=== PATIENT | female | born 1975 | race Caucasian/White ===

== ENCOUNTER → 2019-01-31 | Outpatient (CLI) | payer BC, SELFPAY ==
[2019-01-31 17:28] LABS: Hemoglobin 12.7 g/dl (12.0-15.0); Mean Corp Hgb Conc 32.6 g/gl (32-36); Mean Corpuscular Hgb 29.5 pg (27.0-32.0); Mean Corpuscular Volume 90.5 fL (81-99); Mean Platelet Vol. 10.3 fl (6.2-12.0); Platelet Count 287 K/mm3 (150-450); RBC Distribution Width CV 13.5 % (11.6-14.6); RBC Distribution Width SD 44.9 fl (35.1-43.9); Red Blood Count 4.31 M/mm3 (4.2-5.4); White Blood Count 6.8 K/mm3 (4.4-11.0)
[2019-01-31 17:31] LABS: Scan Indicated on CBC? Y/N NO
[2019-01-31 17:54] LABS: AST(SGOT) 29 U/L (15-37); Alanine Aminotransfer ALT/SGPT 53 U/L (13-56)
== END | disposition home or self-care (01) ==
LOC: LAB.FUTURE 16:06
PROVIDERS: Family Provider Internal Medicine; PCP Internal Medicine; Referring Provider Podiatrist; Visit Provider Podiatrist
DX: B35.1 Tinea unguium (principal)
CPT/HCPCS: 36415; 84450; 84460; 85027

== ENCOUNTER 2019-02-09 06:59 | Emergency (ER) | payer BC, SELFPAY ==
[2019-02-09 06:30] VITALS: BMI 40.8
[2019-02-09 07:01] VITALS: BP 147/101; PULSE 90; RESP 16; TEMP 36.9; O2SAT 98; BMI 41.5
--- NOTE | 2019-02-09 07:32 | VDLE_ITS ---
Reason For Study: Swelling Procedure LEFT Exam performed portable in ED. GSV is normal. A preliminary report was called and/or faxed CFV is compressible, spontaneous, phasic, to R[place]. competent, and demonstrates normal augmentation. FV is compressible, spontaneous, phasic, competent and demonstrates normal augmentation. POP V is compressible, spontaneous, phasic, competent and demonstrates normal augmentation. T/P Trunk is compressible. PTV is compressible. LT PerV is compressible. Interpretation Summary Deep veins of the left lower extremity are patent and compressible segmentally. There is no evidence of left lower extremity deep vein thrombosis. Valvular competence appears intact within the proximal deep venous system on the left . The left greater saphenous vein appears patent and compressible segmentally. Ordering Physician: Alexis Ni Referring Physician: Souleymane Rodríguez Performed By: Latisha Tan RVT
--- NOTE | 2019-02-09 07:36 | ED.DCSUM_ITS ---
- ER Visit Summary Date of Service: 02/09/19 Chief Complaint: Left leg swelling History of Present Illness: The patient is a 43 F who presents with swelling of her left leg for the past 4 days. Patient states the swelling is localized to the ankle area. Patient states she did have some pain when she tried to ice her ankle yesterday. Patient denies any new paresthesias or weakness. Patient states she does have a history of neuropathy in her left foot. Patient denies any chest pain or shortness of breath. Patient states [facility] and was referred here for ultrasound. Physical Examination: Vital signs are stable. Patient is afebrile. Patient is in no acute distress. Musculoskeletal exam reveals some tenderness over the left calf. There is trace edema of the left foot and ankle. Pedal pulses are equal bilaterally. Sensation was intact to light touch in all digits. Capillary refill was less than 2 seconds in all digits. There is minimal pain with dorsiflexion of the left ankle. Test Results: Venous duplex of the left leg was obtained. There is no evidence of DVT. Emergency Department Course and Treatment: Patient was advised of the ultrasound results. Patient was instructed to ice and elevate her left leg. Patient was instructed to follow-up with her primary care physician in 5 to 7 days. Patient understood and was agreeable with the plan. All questions were answered. Disposition: Discharge home Impression: Left leg edema This note was generated with [employer] dictation software. It may contain incorrect words, spelling, and punctuation that were not noted in review of the chart prior to signing ED Disposition - Plan for ED Patient: Disposition: Home or Assisted Living Diagnosis: Leg edema, left Instructions: ED Leg Swelling Unilateral Referrals: Corina Henry MD [STAFF PHYSICIAN] - 5-7 Days
[2019-02-09 08:34] VITALS: RESP 17
--- NOTE | 2019-02-09 08:35 | ED.RN ---
DISCHARGE INSTRUCTIONS GIVEN TO AND REVIEWED WITH PATIENT, PATIENT DENIES QUESTIONS OR CONCERNS AND VOICES UNDERSTANDING OF DISCHARGE INSTRUCTIONS. PT AMBULATES OUT OF ROOM WITHOUT DIFFICULTY.
== END 2019-02-09 08:35 | disposition home or self-care (01) ==
PROVIDERS: Emergency Provider Emergency Medicine; Family Provider Nurse Practitioner Family; PCP Nurse Practitioner Family
DX: R60.0 Localized edema (principal); J45.909 Unspecified asthma, uncomplicated; K21.9 Gastro-esophageal reflux disease without esophagitis; R56.9 Unspecified convulsions; Z79.51 Long term (current) use of inhaled steroids
CPT/HCPCS: 93971; 99282

== ENCOUNTER → 2019-11-28 17:39 | Outpatient (CLI) | payer OTHER, SELFPAY ==
[2019-11-28 17:55] LABS: Absolute Lymphocyte Count 2.57 X10^3/uL (0.83-4.51); Absolute Neutrophil Count 6.1 X10^3/uL (2.0-7.7); Basophil# 0.05 X10^3/uL; Basophil% 0.5 % (0-1); Eosinophil# 0.44 X10^3/uL; Eosinophils% 4.5 % (0-5); Hematocrit 42.1 % (37-47); Hemoglobin 13.4 g/dL (12.0-15.0); Lymphocyte # 2.57 X10^3/ul (4.0); Lymphocyte % 26.1 % (19-41); Mean Corp Hgb Conc 31.8 g/dL (32-36); Mean Corpuscular Hgb 29.3 pg (27.0-32.0); Mean Corpuscular Volume 92.1 fL (81-99); Mean Platelet Vol. 10.4 fl (6.2-12.0); Monocyte# 0.64 X10^3/uL; Monocyte% 6.5 % (0-10); NRBC Flagged by Analyzer 0 % (0-5); Neutrophil # 6.12 X10^3/uL (2.7-7.7); Platelet Count 298 K/mm3 (150-450); RBC Distribution Width CV 13.5 % (11.6-14.6); RBC Distribution Width SD 46.3 fl (35.1-43.9); Red Blood Count 4.57 M/mm3 (4.2-5.4); White Blood Count 9.9 K/mm3 (4.4-11.0)
[2019-11-28 19:35] LABS: Vitamin B12 399 pg/mL (211-911); Vitamin D,25 Hydroxy 34.6 ng/mL
[2019-11-28 19:42] LABS: AST(SGOT) 29 U/L (15-37); Alanine Aminotransfer ALT/SGPT 47 U/L (13-56); Albumin, Serum 3.7 g/dL (3.2-5.0); Alkaline Phosphatase 79 U/L (45-117); Anion Gap 8 (5-15); BUN 14 mg/dL (7-18); BUN/Creat Ratio 14.3 RATIO (10-20); Calcium,Total 8.9 mg/dL (8.5-10.1); Chloride 103 mmol/L (98-107); Creatinine, Serum 0.98 mg/dL (0.55-1.02); EST Glomerular Filtration Rate 66 mL/min (>60); Est Glom Filt Rate - Afr Amer 80 mL/min (>60); Globulin 3.7 g/dL (2.2-4.2); Glucose 84 mg/dL (74-106); Magnesium 2.1 mg/dL (1.6-2.6); Potassium 3.7 mmol/L (3.5-5.1); Protein, Total 7.4 g/dL (6.4-8.2); Sodium Level 137 mmol/L (136-145); Thyroid Stim Hormone (TSH) 2.68 uIU/mL (0.358-3.74)
== END ==
PROVIDERS: PCP Nurse Practitioner Family; Referring Provider Family Medicine; Visit Provider Family Medicine
DX: G62.9 Polyneuropathy, unspecified (principal); R25.2 Cramp and spasm
CPT/HCPCS: 36415; 80053; 82306; 82607; 82746; 83735; 84443; 85025

== ENCOUNTER → 2020-03-20 16:03 | Outpatient (CLI) | payer OTHER, SELFPAY ==
--- NOTE | 2020-03-20 16:17 | RAD_ITS ---
STUDY: X-RAY - LUMBAR SPINE REASON FOR EXAM: Female, 44 years old. Low back pain since the beginning of November TECHNIQUE: 5 view(s) of the lumbar spine were obtained. COMPARISON: None FINDINGS: Normal lumbar lordosis. There is no substantial scoliosis. There is a normal alignment of the vertebrae. Normal vertebral bodies and endplates. Normal disc space heights except for narrowing at L5/S1. There is no demonstrated fracture. The soft tissue structures are unremarkable. RAD/L/S Spine Min 4 Views IMPRESSION: Degenerative changes at L5/S1, otherwise unremarkable lumbar spine Electronically Signed: Timmy Guy MD at 16:48 EDT , Service support ,
--- NOTE | 2020-03-20 16:18 | RAD_ITS ---
STUDY: X-RAY - SACROILIAC JOINTS REASON FOR EXAM: Female, 44 years old. Low back pain since the beginning of November TECHNIQUE: 3 view(s) of the sacroiliac joints were obtained. COMPARISON: None. FINDINGS: Normal bilateral sacroiliac joints. Normal visualized sacral ala and sacrum. Normal visualized iliac bones. Normal visualized soft tissue structures. RAD/S-I Jts 3 or More Views IMPRESSION: Normal x-ray examination of the bilateral sacroiliac joints. Electronically Signed: Timmy Guy MD at 16:48 EDT , Service support ,
[2020-03-20 17:58] LABS: AST(SGOT) 31 U/L (15-37); Alanine Aminotransfer ALT/SGPT 57 U/L (13-56); Albumin, Serum 3.7 g/dL (3.2-5.0); Alkaline Phosphatase 73 U/L (45-117); Anion Gap 9 (5-15); BUN 10 mg/dL (7-18); BUN/Creat Ratio 10.2 RATIO (10-20); Chloride 107 mmol/L (98-107); Creatinine, Serum 0.98 mg/dL (0.55-1.02); EST Glomerular Filtration Rate 66 mL/min (>60); Est Glom Filt Rate - Afr Amer 79 mL/min (>60); Globulin 3.8 g/dL (2.2-4.2); Glucose 98 mg/dL (74-106); Potassium 3.5 mmol/L (3.5-5.1); Protein, Total 7.5 g/dL (6.4-8.2); Sodium Level 140 mmol/L (136-145)
== END ==
PROVIDERS: PCP Nurse Practitioner Family; Referring Provider Family Medicine; Visit Provider Family Medicine
DX: B35.1 Tinea unguium (principal); M54.5 Low back pain
CPT/HCPCS: 36415; 72110; 72202; 80053

== ENCOUNTER 2020-05-04 15:00 | Outpatient (RCR) | payer OTHER, SELFPAY ==
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
--- NOTE | 2020-05-04 15:56 | HP.PTDCSUM_ITS ---
It has been my pleasure to treat FRANSICO HOWELL referred by Dr. Guzman Polanco MD, with the diagnosis of LOWER BACK PAIN for a total of 7 visit(s). Discharge Date: 05/04/20 Please see the following information for a summary of their discharge status. Subjective: THE CONSTANT ACHING PAIN IS ALMOST GONE BUT INTERMITTENT SHARP SHOOTING PAINS ARE ABOUT THE SAME. PATIENT REPORTS MISSING SEVERAL AMELIA'TS DUE TO ILLNESS. LEFT LOW BACK Pain Intensity (Out of 10): 0 % Improvement: 60 Objective/Function: PATIENT WAS SEEN TODAY FOR RE-ASSESSMENT OF PROGRESS TOWARD THE SET PT GOALS AND THE NEED FOR FURTHER PHYSICAL THERAPY VS READINESS FOR DISCHARGE. PATIENT IS A GOOD CANDIDATE TO CONTINUE PT BASED ON PROGRESS MADE AND ROOM FOR FUTHER IMPROVEMENT BUT SHE IS REQUESTING TO STOP PT AND TRY HEP AT THIS POINT. WILL FOLLOW UP WITH DR. DALE NEEDED. THIS PT ENCOURAGED PATIENT TO SCHEDULE FOLLOW UP WITH DR. DALE IF UNABLE TO RETURN TO PRIOR LEVEL OF FUNCTION AND PAIN. PATIENT IS AGREEABLE. UPON EXAM TODAY: THIS PATIENT AMBULATES INDEP'LY INTO PT WITH INCREASED CADANCE AND DECREASED GUARDING WITH TRANSFERS COMPARED TO INTIAL EVAL. Motor deficit: SANDOVAL LE'S 5/5 WITH MMT'ING. Sensory deficit: DECREASED LEFT ANKLE AND FOOT LIGHT TOUCH COMPARED TO RIGHT. ROM deficit: WFL AND SYMMETRICAL. Reflexes: NT. Dural Signs: NEGATIVE SANDOVAL LE'S. Lumbar mvmt loss: flex - NIL. ext - MIN. R SG - MIN. L SG - MOD. INCREASED LEFT LBP WITH LEFT SG TESTING. Core strength: POOR. OTHER: INDEP HEP Goal 1:: DECREASE C/O LOW BACK AND LLE SX'S. Goal 2:: IMPROVE PERSONAL CARE, LIFTING, WALKING, SITTING, STANDING, SLEEP, SO CIAL LIFE, TRAVEL AND WORK/HOMEMAKING FUNCTION Goal 3:: INSTRUCT IN PROPHYLAXIS Plan: D/C AT PATIENTS REQUEST If there are questions or concerns regarding this patient's physical therapy, please feel free to call me at [phone]. Thank you for the referral of this patient. Sincerely, Corina Finnegan, PT, Cert MDT
== END 2020-05-04 19:00 | disposition home or self-care (01) ==
LOC: PT 15:00
PROVIDERS: PCP Family Medicine; Referring Provider Family Medicine; Visit Provider Family Medicine
DX: M54.5 Low back pain (principal)
CPT/HCPCS: 97014; 97110; 97112; 97162; 97164; 97530; G0283

== ENCOUNTER → 2020-08-07 08:24 | Outpatient (CLI) | payer OTHER, SELFPAY ==
--- NOTE | 2020-08-07 15:06 | PFTCOMP ---
COMPLETE PULMONARY FUNCTION TEST INTERPRETATION Brief HPI: Patient is a 45 year old female, currently under the care of Dr. Polanco, who presents to [facility] for complete pulmonary function tests secondary to diagnosis of asthma. Respiratory therapist reports good effort and reproducible results. Interpretation: Forced expiration spirometry shows no large airways obstructive ventilatory defect with an FEV1 of 91% predicted. There is no significant bronchodilator response by strict ATS criteria. Spirograms are of good quality and plateau slowly, indicating slowly emptying areas of the lungs. The respiratory flow volume loop shows decreased expiratory flow rates at high lung volumes consistent with small airways obstruction. Lung volumes by body plethysmography show a normal total lung capacity at 6.44 L, 97% predicted. All other lung volumes are within normal limits. Diffusion capacity by carbon monoxide is slightly decreased at 72% predicted. The airway resistance is elevated. No previous pulmonary function tests were available for review. Impression: Normal lung volumes and spirometry, but slightly reduced diffusing capacity.
== END ==
PROVIDERS: PCP Family Medicine; Referring Provider Family Medicine; Visit Provider Family Medicine
DX: J45.40 Moderate persistent asthma, uncomplicated (principal)
CPT/HCPCS: 94060; 94726; 94729

== ENCOUNTER 2020-11-30 16:39 | Outpatient (RCR) | payer OTHER, SELFPAY ==
[2020-11-30] MEDS: COVID-19 VACC, MRNA(PFIZER)/PF 30 MCG/0.3 ML SYRINGE IM (17:18)
[2020-12-21] MEDS: COVID-19 VACC, MRNA(PFIZER)/PF 30 MCG/0.3 ML SYRINGE IM (13:29)
== END 2020-11-30 23:59 ==
LOC: IMMUN 16:39
PROVIDERS: PCP Family Medicine; Referring Provider Family Medicine; Visit Provider Family Medicine
DX: Z23 Encounter for immunization (principal)
CPT/HCPCS: 0001A; 0002A; 91300

== ENCOUNTER 2023-03-25 13:45 | Emergency (ER) | payer OTHER, SELFPAY ==
[2023-03-25 13:45] VITALS: BP 158/97; PULSE 110; RESP 18; TEMP 36.6; O2SAT 99; BMI 42.7
[2023-03-25 14:17] LABS: Mucous, Urine 0 SEEN /hpf (<or=2+)
[2023-03-25 14:20] LABS: Absolute Lymphocyte Count 1.57 X10^3/uL (0.83-4.51); Absolute Neutrophil Count 9.6 X10^3/uL (2.0-7.7); Basophil# 0.05 X10^3/uL; Basophil% 0.4 % (0-1); Color, Urine Yellow (Yellow); Eosinophil# 0.18 X10^3/uL; Eosinophils% 1.5 % (0-5); Glucose, Dipstick Normal (Normal); Hematocrit 43.3 % (37-47); Hemoglobin 13.9 g/dL (12.0-15.0); Ketone-Dipstick Negative (Negative); Leukocyte Esterase-Dipstick 500 /ul (Negative); Lymphocyte # 1.57 X10^3/ul (0.83-4.51); Mean Corp Hgb Conc 32.1 g/dL (32-36); Mean Corpuscular Hgb 28.9 pg (27.0-32.0); Mean Platelet Vol. 10.4 fl (6.2-12.0); Monocyte# 0.61 X10^3/uL; NRBC Flagged by Analyzer 0 % (0-5); Neutrophil # 9.62 X10^3/uL (2.7-7.7); Neutrophil % 79.6 % (47-70); Nitrite-Dipstick Negative (Negative); Occult Blood-Urine 50 /ul (Negative); Platelet Count 300 K/mm3 (150-450); Protein-Dipstick 30 mg/dl (Negative); RBC Distribution Width CV 13.6 % (11.6-14.6); RBC Distribution Width SD 44.9 fl (35.1-43.9); Red Blood Count 4.81 M/mm3 (4.2-5.4); Urine Bilirubin Dipstick Negative (Negative); Urine Clarity Sl. Cloudy (Clear); Urine Urobilinogen Normal (Normal); White Blood Count 12.1 K/mm3 (4.4-11.0)
[2023-03-25 14:33] LABS: Anion Gap 3 (5-15); BUN 19 mg/dL (7-18); Calcium,Total 9.8 mg/dL (8.5-10.1); Chloride 107 mmol/L (98-107); Creatinine, Serum 1.19 mg/dL (0.55-1.02); EST Glomerular Filtration Rate 52 mL/min (>60); Est Glom Filt Rate - Afr Amer 63 mL/min (>60); Estimated Creatinine Clearance 66.73 ml/min; Glucose 106 mg/dL (74-106); Sodium Level 137 mmol/L (136-145)
[2023-03-25 14:35] LABS: Bacteria 1+ /hpf (None Seen); Red Blood Cells-Urine 0-5 SEEN /hpf (0-5); Squamous Epithelial Cells - UA 0-5 SEEN /hpf (5-10); White Blood Cells 25-50 SEEN /hpf (0-5)
--- NOTE | 2023-03-25 15:38 | EDS_ITS ---
HPI History of Present Illness Chief Complaint: Flank Pain Informant: patient Onset/Context/Timing Onset: Days Context: Gradual Onset Narrative Narrative: Patient presents with left flank pain for the past couple days and concern for possible UTI for the past week. She states she has noted cloudy urine and slight increased urinary frequency over the past week. She has had chills. Over the past 2 days she now has pain when she urinates and left flank pain. She does report that she gets frequent urinary symptoms but usually will drink a lot of water to help flush her kidney. She does report having a kidney stone about 19 years ago. [facility] Medical History Asthma Diarrhea Fatigue Hemorrhoids Incontinence Seizures Shortness of breath Shoulder pain Stomach ulcer Home Medications albuterol sulfate 90 mcg/actuation aerosol inhaler (Ventolin HFA) 1 - 2 puff inhalation Q4H PRN PRN Wheezing 07/29/13 [History Last Taken 08/03/13 14:00] loratadine 10 mg tablet (Allergy Relief (loratadine)) 10 mg PO DAILY 08/26/13 [History Last Taken Unknown] cholecalciferol (vitamin D3) 250 mcg (10,000 unit) tablet 12,000 unit PO QWEEK 02/09/19 [History Last Taken Unknown] azithromycin 250 mg tablet See Rx Instructions PO .COMPLEX #6 tabs 03/03/22 [Rx Last Taken Unknown] hydrocodone-acetaminophen 5-325mg 5mg-325mg 1 tab PO Q6H PRN PRN Pain 3 days #10 TABLETS 03/25/23 [Rx Last Taken Unknown] ondansetron 4 mg disintegrating tablet 4 mg PO Q8H PRN PRN Nausea #10 tabs 03/25/23 [Rx Last Taken Unknown] sulfamethoxazole 800 mg-trimethoprim 160 mg tablet (Bactrim DS) 1 tab PO BID #20 tabs 03/25/23 [Rx Last Taken Unknown] Allergy/AdvReac Type Severity Reaction Status Date / Time aspirin Allergy Severe Anaphylaxis Verified 03/25/23 13:47 ibuprofen Allergy Severe Anaphylaxis Verified 03/25/23 13:47 naproxen [From Naprosyn] Allergy Severe Anaphylaxis Verified 03/25/23 13:47 Family History Other Breast cancer Colon cancer Diabetes Heart disease Myocardial infarction Thyroid disorder Surgical History History of bunionectomy of both great toes History of hysterectomy History of lateral meniscus repair of left knee Social History Smoking Status: Never smoker alcohol intake: current alcohol intake frequency: holidays/special occasions only ROS ROS ED Constitutional Constitutional ED: Reports chills; Denies fever(s) Eyes Eyes: Denies change in vision or discharge from eye(s) ENT ENT ED: Denies discharge from eye(s), rhinorrhea or sore throat Cardiovascular Cardiovascular: Denies chest pain or palpitations Respiratory/Chest Respiratory/Chest: Denies cough or dyspnea Gastrointestinal Gastrointestinal: Reports abdominal pain and nausea; Denies diarrhea or vomiting Genitourinary Genitourinary ED: Reports dysuria Musculoskeletal Musculoskeletal: Reports back pain; Denies extremity pain Integumentary Denies Abrasions or rash Neurologic Neurologic: Denies headache(s) or weakness Allergic/Immunologic Allergic/Immunologic ED: Denies lip swelling or urticaria EXAM Physical Exam Const Vital Signs: 03/25/23 13:45 Temperature 98 F Temperature Source Temporal Pulse Rate 110 H Respiratory Rate 18 Blood Pressure 158/97 H Blood Pressure Mean 117 Pulse Ox 99 Oxygen Delivery Method Room Air Positive well nourished and well developed General Appearance ED: well developed HEENT Reports moist mucous membranes Eyes PERRL and EOMs intact bilaterally Neck no lymphadenopathy Chest Wall inspection of chest normal and palpation of chest normal Resp normal respiratory effort and clear to auscultation bilaterally Cardio regular rate and regular rhythm GI GI Narrative: Abdomen soft with no focal tenderness. Back/Spine General Back: CVA tenderness left Extremity normal to inspection Neuro oriented x3 Psych mental status grossly normal Skin no rashes or lesions noted MDM MDM MDM Narrative Medical decision making narrative: Due to long wait time patient had work-up initiated through nursing protocol. Labwork obtained to evaluate for leukocytosis, anemia, and electrolyte derangement. Urinalysis obtained to evaluate for infection/hematuria. Lab Data Labs: Laboratory Results - last 24 hr 03/25/23 14:08 WBC 12.1 H RBC 4.81 Hgb 13.9 Hct 43.3 MCV 90.0 MCH 28.9 MCHC 32.1 RDW Std Deviation 44.9 H RDW Coeff of Cathie 13.6 Plt Count 300 MPV 10.4 Immature Gran % (Auto) 0.500 Neut % (Auto) 79.6 H Lymph % (Auto) 13.0 L Green % (Auto) 5.0 Eos % (Auto) 1.5 Baso % (Auto) 0.4 Absolute Neuts (auto) 9.6 H Absolute Lymphs (auto) 1.57 Nucleated RBC % 0 Sodium 137 Potassium 4.0 Chloride 107 Carbon Dioxide 27.0 Anion Gap 3 L BUN 19 H Creatinine 1.19 H Estim Creat Clear Calc 66.73 Est GFR (MDRD) Af Amer 63 Est GFR (MDRD) Non-Af 52 L BUN/Creatinine Ratio 16.0 Glucose 106 Calcium 9.8 Urine Color Yellow Urine Clarity Sl. Cloudy Urine pH 6.0 Ur Specific [place] 1.010 Urine Protein 30 H Urine Glucose (UA) Normal Urine Ketones Negative Urine Occult Blood 50 H Urine Nitrite Negative Urine Bilirubin Negative Urine Urobilinogen Normal Ur Leukocyte Esterase 500 H Urine RBC 0-5 SEEN Urine WBC 25-50 SEEN Ur Squamous Epith Cells 0-5 SEEN Urine Bacteria 1+ Urine Mucus 0 SEEN Treatment and Re-Evaluation :: CBC was a white count of 12.1 with 79% neutrophils. Hemoglobin normal at 13.9. Chemistry studies reveal a BUN of 19 and a creatinine of 1.19. Urinalysis does reveal signs of infection with 500 leukocyte esterase, 25-50 white cells, 1+ bacteria. At the time of my evaluation patient is ordered a liter IV fluids along with a dose of morphine and Zofran for pain and nausea control. A dose of IV Rocephin will be given and urine culture will be sent. She will be discharged with a prescription for Bactrim. I will also write her a few [place] for breakthrough pain and Zofran for nausea. Return instructions are provided. Discharge Plan Triage Chief Complaint: Flank Pain ED Provider: Shama Aguilar Dx/Rx/DC Orders Clinical Impression: Pyelonephritis Instructions: ED Pyelonephritis, Female (Adult) Prescriptions: New sulfamethoxazole-trimethoprim [Bactrim DS] 800-160 mg tablet 1 tab PO BID Qty: 20 0RF hydrocodone-acetaminophen 5-325 mg tablet 1 tab PO Q6H PRN PRN (Reason: Pain) 3 Days Qty: 10 0RF ondansetron 4 mg tablet,disintegrating 4 mg PO Q8H PRN PRN (Reason: Nausea) Qty: 10 0RF No Action azithromycin 250 mg tablet See Rx Instructions PO .COMPLEX Qty: 6 0RF Rx Instructions: take 500 mg today (day 1), then 250 mg for 4 days (days 2-5) PO albuterol sulfate [Ventolin HFA] 1 INHALER inhaler 1 - 2 puff inhalation Q4H PRN PRN (Reason: Wheezing) loratadine [Allergy Relief (loratadine)] 10 MG tablet 10 mg PO DAILY cholecalciferol (vitamin D3) 10,000 UNIT tablet 12,000 unit PO QWEEK Primary Care Provider: Guzman Polanco Referrals: Guzman Polanco MD [Primary Care Provider] - 1-2 Weeks Disposition Disposition: Home, Self Care
[2023-03-25] MEDS: Morphine 4 MG/ML Syringe IV (15:59)
[2023-03-25] MEDS: Ondansetron 4 MG/2 ML Vial IV (15:59)
[2023-03-25] MEDS: 0.9% Normal Saline 1,000 ML 999 ML IV (15:59)
[2023-03-25] MEDS: Ceftriaxone 1 GM/50 ML BAG IV (16:04)
[2023-03-25 16:46] VITALS: BP 135/72; PULSE 88; RESP 16; O2SAT 97
== END 2023-03-25 16:48 | disposition home or self-care (01) ==
PROVIDERS: Emergency Provider Emergency Medicine; PCP Family Medicine; Visit Provider Emergency Medicine
DX: N12 Tubulo-interstitial nephritis, not specified as acute or chronic (principal)
CPT/HCPCS: 80048; 81001; 85025; 87086; 87088; 87186; 96365; 96375; 99283; J7030; A4216; J2405

== ENCOUNTER → 2023-04-22 | Outpatient (CLI) | payer OTHER, SELFPAY ==
[2023-04-22 18:03] LABS: Absolute Lymphocyte Count 2.01 X10^3/uL (0.83-4.51); Absolute Neutrophil Count 5.9 X10^3/uL (2.0-7.7); Basophil# 0.04 X10^3/uL; Basophil% 0.4 % (0-1); Eosinophil# 0.48 X10^3/uL; Eosinophils% 5.4 % (0-5); Lymphocyte # 2.01 X10^3/ul (0.83-4.51); Lymphocyte % 22.6 % (19-41); Mean Corp Hgb Conc 31.7 g/dL (32-36); Mean Corpuscular Volume 91.3 fL (81-99); Mean Platelet Vol. 10.9 fl (6.2-12.0); Monocyte# 0.46 X10^3/uL; Monocyte% 5.2 % (0-10); NRBC Flagged by Analyzer 0 % (0-5); Neutrophil # 5.88 X10^3/uL (2.7-7.7); Neutrophil % 66.2 % (47-70); Platelet Count 284 K/mm3 (150-450); RBC Distribution Width CV 14.5 % (11.6-14.6); RBC Distribution Width SD 48.7 fl (35.1-43.9); Red Blood Count 4.49 M/mm3 (4.2-5.4); White Blood Count 8.9 K/mm3 (4.4-11.0)
[2023-04-22 18:23] LABS: Vitamin B12 309 pg/mL (211-911); Vitamin D,25 Hydroxy 40.6 ng/mL
[2023-04-22 18:32] LABS: ALB/GLOB Ratio 0.8 RATIO (0.9-2.4); AST(SGOT) 24 U/L (15-37); Alanine Aminotransfer ALT/SGPT 41 U/L (13-56); Albumin, Serum 3.3 g/dL (3.2-5.0); Alkaline Phosphatase 78 U/L (45-117); Anion Gap 5 (5-15); BUN 13 mg/dL (7-18); BUN/Creat Ratio 13.1 RATIO (10-20); Calcium,Total 9.4 mg/dL (8.5-10.1); Chloride 109 mmol/L (98-107); Cholesterol 122 mg/dL (200); Creatinine, Serum 0.99 mg/dL (0.55-1.02); EST Glomerular Filtration Rate 64 mL/min (>60); Est Glom Filt Rate - Afr Amer 78 mL/min (>60); Globulin 3.9 g/dL (2.2-4.2); Glucose 110 mg/dL (74-106); High Density Lipoprotein 50 mg/dL; Magnesium 2.1 mg/dL (1.6-2.6); Potassium 3.9 mmol/L (3.5-5.1); Protein, Total 7.2 g/dL (6.4-8.2); Rheumatoid Factor < 10.0 IU/mL (<15); Sodium Level 141 mmol/L (136-145); Thyroid Stim Hormone (TSH) 2.69 uIU/mL (0.358-3.74); Triglycerides 187 mg/dL; Very Low Density Lipoprotein 37 mg/dL (5-40)
[2023-04-22 18:38] LABS: Erythrocyte Sedimentation Rate 21 mm/hr (0-30)
[2023-04-24 11:09] LABS: ANTINUCLEAR ANTIBODIES DIRECT Negative (Negative)
== END | disposition home or self-care (01) ==
LOC: MFPLAB 15:49
PROVIDERS: PCP Family Medicine; Visit Provider Family Medicine
DX: M25.50 Pain in unspecified joint (principal); E11.9 Type 2 diabetes mellitus without complications; R20.2 Paresthesia of skin
CPT/HCPCS: 36415; 80053; 80061; 82306; 82607; 83735; 84443; 85025; 85652; 86038; 86140; 86431

== ENCOUNTER → 2023-05-12 | Outpatient (CLI) | payer OTHER, SELFPAY ==
--- NOTE | 2023-05-12 10:15 | RAD_ITS ---
INDICATION: PAIN EXAMINATION/TECHNIQUE: X-RAY - XR Pelvis 1 or 2 Views COMPARISON: No prior examinations are available for comparison. FINDINGS: PELVIC BONES: No displaced fracture, destructive or sclerotic lesions. Note that overlapping bowel shadows may however obscure fine detail. Sacroiliac joints are unremarkable. No widening of the pubic symphysis. HIPS: Minimal narrowing of the right hip joint. No displaced fracture seen in this frontal view. SOFT TISSUES: No soft tissue swelling or gas. RAD/Pelvis 1 or 2 Views IMPRESSION: Minimal narrowing of the right hip joint. Electronically Signed: Vivek Goncalves MD at 20:44 EDT ,
[2023-05-12 12:17] LABS: Absolute Lymphocyte Count 2.11 X10^3/uL (0.83-4.51); Absolute Neutrophil Count 6.6 X10^3/uL (2.0-7.7); Basophil# 0.05 X10^3/uL; Basophil% 0.5 % (0-1); Eosinophil# 0.32 X10^3/uL; Eosinophils% 3.4 % (0-5); Hematocrit 43.3 % (37-47); Hemoglobin 13.5 g/dL (12.0-15.0); Lymphocyte # 2.11 X10^3/ul (0.83-4.51); Lymphocyte % 22.3 % (19-41); Mean Corp Hgb Conc 31.2 g/dL (32-36); Mean Corpuscular Volume 93.1 fL (81-99); Mean Platelet Vol. 10.6 fl (6.2-12.0); Monocyte% 4.2 % (0-10); NRBC Flagged by Analyzer 0 % (0-5); Neutrophil # 6.55 X10^3/uL (2.7-7.7); Neutrophil % 69.3 % (47-70); Platelet Count 325 K/mm3 (150-450); RBC Distribution Width CV 14.2 % (11.6-14.6); RBC Distribution Width SD 48.3 fl (35.1-43.9); Red Blood Count 4.65 M/mm3 (4.2-5.4); White Blood Count 9.5 K/mm3 (4.4-11.0)
[2023-05-12 12:44] LABS: ALB/GLOB Ratio 0.9 RATIO (0.9-2.4); AST(SGOT) 26 U/L (15-37); Alanine Aminotransfer ALT/SGPT 46 U/L (13-56); Albumin, Serum 3.5 g/dL (3.2-5.0); Alkaline Phosphatase 79 U/L (45-117); Anion Gap 5 (5-15); BUN 14 mg/dL (7-18); BUN/Creat Ratio 14.6 RATIO (10-20); Calcium,Total 9.6 mg/dL (8.5-10.1); Chloride 109 mmol/L (98-107); Creatinine, Serum 0.96 mg/dL (0.55-1.02); EST Glomerular Filtration Rate 67 mL/min (>60); Est Glom Filt Rate - Afr Amer 81 mL/min (>60); Globulin 3.8 g/dL (2.2-4.2); Glucose 127 mg/dL (74-106); Protein, Total 7.3 g/dL (6.4-8.2); Rheumatoid Factor < 10.0 IU/mL (<15); Sodium Level 140 mmol/L (136-145)
[2023-05-12 13:16] LABS: Hepatitis B Surface Antibody Reactive; Hepatitis B Surface Antigen Non-Reactive (Nonreactive); Hepatitis C Antibody Non-Reactive (Nonreactive)
[2023-05-13 13:07] LABS: CCP IgG Antibodies 4 units (0-19)
== END | disposition home or self-care (01) ==
LOC: MTLAB 10:01
PROVIDERS: PCP Family Medicine; Referring Provider Internal Medicine Rheumatology; Visit Provider Internal Medicine Rheumatology
DX: M06.4 Inflammatory polyarthropathy (principal); M79.7 Fibromyalgia
CPT/HCPCS: 36415; 72170; 80053; 85025; 86200; 86431; 86706; 86707; 86803; 87340; 87350

== ENCOUNTER → 2024-04-08 | Outpatient (CLI) | payer OTHER, SELFPAY ==
[2024-04-08 07:44] LABS: Bacteria 0 SEEN /hpf (None Seen); Mucous, Urine 0 SEEN /hpf (<or=2+); Red Blood Cells-Urine 0 SEEN /hpf (0-5); White Blood Cells 0 SEEN /hpf (0-5)
[2024-04-08 10:09] LABS: Absolute Lymphocyte Count 1.99 X10^3/uL (0.83-4.51); Basophil# 0.06 X10^3/uL; Basophil% 0.9 % (0-1); Eosinophil# 0.36 X10^3/uL; Eosinophils% 5.2 % (0-5); Hematocrit 42.7 % (37-47); Hemoglobin 13.6 g/dL (12.0-15.0); Lymphocyte # 1.99 X10^3/ul (0.83-4.51); Lymphocyte % 28.6 % (19-41); Mean Corp Hgb Conc 31.9 g/dL (32-36); Mean Platelet Vol. 10.6 fl (6.2-12.0); Monocyte% 7.2 % (0-10); NRBC Flagged by Analyzer 0 % (0-5); Neutrophil # 4.03 X10^3/uL (2.7-7.7); Neutrophil % 57.8 % (47-70); Platelet Count 291 K/mm3 (150-450); RBC Distribution Width CV 13.9 % (11.6-14.6); RBC Distribution Width SD 46.6 fl (35.1-43.9); Red Blood Count 4.69 M/mm3 (4.2-5.4)
[2024-04-08 10:18] LABS: Color, Urine Straw (Yellow); Glucose, Dipstick Normal (Normal); Ketone-Dipstick Negative (Negative); Leukocyte Esterase-Dipstick Negative /ul (Negative); Nitrite-Dipstick Negative (Negative); Occult Blood-Urine Negative /ul (Negative); Protein-Dipstick Negative (Negative); Urine Bilirubin Dipstick Negative (Negative); Urine Clarity Clear (Clear); Urine Urobilinogen Normal (Normal)
[2024-04-08 10:28] LABS: Squamous Epithelial Cells - UA 0-5 SEEN /hpf (5-10)
[2024-04-08 10:34] LABS: ALB/GLOB Ratio 0.9 RATIO (0.9-2.4); AST(SGOT) 39 U/L (15-37); Alanine Aminotransfer ALT/SGPT 61 U/L (13-56); Albumin, Serum 3.4 g/dL (3.2-5.0); Alkaline Phosphatase 78 U/L (45-117); Anion Gap 5 (5-15); BUN 14 mg/dL (7-18); BUN/Creat Ratio 13.9 RATIO (10-20); Calcium,Total 9.5 mg/dL (8.5-10.1); Chloride 107 mmol/L (98-107); Creatinine, Serum 1.01 mg/dL (0.55-1.02); EST Glomerular Filtration Rate 63 mL/min (>60); Est Glom Filt Rate - Afr Amer 76 mL/min (>60); Globulin 3.9 g/dL (2.2-4.2); Glucose 139 mg/dL (74-106); Potassium 3.8 mmol/L (3.5-5.1); Protein, Total 7.3 g/dL (6.4-8.2); Sodium Level 138 mmol/L (136-145)
== END | disposition home or self-care (01) ==
LOC: MTLAB 07:43
PROVIDERS: PCP Family Medicine; Referring Provider Nurse Practitioner Family; Visit Provider Nurse Practitioner Family
DX: R10.9 Unspecified abdominal pain (principal)
CPT/HCPCS: 36415; 80053; 81001; 85025; 87086; 87088

== ENCOUNTER → 2024-04-22 | Outpatient (CLI) | payer OTHER, SELFPAY ==
--- NOTE | 2024-04-22 13:49 | CT_ITS ---
CT/Abdomen/Pelvis without Cont IMPRESSION: Mild fullness the left renal collecting system without nephrolithiasis or obstructing ureterolithiasis. Right renal atrophy with a small nonobstructing calculus. Hepatic steatosis. Incompletely imaged lipomatous mass of the right lateral chest wall, possible lipoma. Electronically Signed: Melissa Elizondo MD at 14:21 EDT ,
== END | disposition home or self-care (01) ==
LOC: CT 13:49
PROVIDERS: PCP Family Medicine; Referring Provider Nurse Practitioner Family; Visit Provider Nurse Practitioner Family
DX: R10.9 Unspecified abdominal pain (principal)
CPT/HCPCS: 74176

== ENCOUNTER → 2024-06-06 | Outpatient (CLI) | payer OTHER, SELFPAY ==
--- NOTE | 2024-06-06 10:12 | NM_ITS ---
CLINICAL: 48-year-old female with history of hydronephrosis. 99m Tc MAG3 DIURETIC RENAL SCINTIGRAPHY COMPARISON: CT of the abdomen-pelvis report 04/22/2024 FINDINGS: Following the intravenous administration of 10.9 mCi of 99m Tc MAG3, renal images reveal: 1. The flow study demonstrates prompt radiotracer delivery to the left kidney. Flow to the right kidney is decreased and delayed. 2. Immediate static delayed nephrogram images depict prompt, homogeneous tracer concentration by the renal parenchyma of the left kidney. Uptake in the relatively hypotrophic right kidney appears uniform and delayed. Collecting structure visualization is identified at 4 minutes post tracer injection bilaterally. Washout of the radiopharmaceutical by the renal parenchyma appears qualitatively normal in the left kidney is mildly delayed in the right renal unit. Persistent collecting system activity is defined in the left renal unit prior to Lasix provision. Spontaneous drainage of the right kidney collecting system is noted prior to Lasix administration 3. The [id number] ratio of total renal parenchymal function was calculated to be 22/78. Furosemide 10 mg was administered intravenously. The post Lasix T ? washout of the left kidney collecting system activity was calculated to be < 10 minutes, (normal < 10 minutes). There is pre-furosemide near complete spontaneous drainage of the right kidney collecting system activity. NM/Renal Scan w/ Pharm Intervent IMPRESSION: 1. There is preservation of left kidney renal parenchymal cortical function. Cortical dysfunction is demonstrated in the right kidney as defined above. 2. Normal functional response to furosemide is demonstrated by the left kidney collecting systems negating the presence of significant mechanical and/or functional obstruction. Spontaneous drainage is defined in the right renal unit. Electronically Signed: Roland Hercules DO at 15:17 EDT ,
== END | disposition home or self-care (01) ==
LOC: NM 10:10
PROVIDERS: PCP Family Medicine; Referring Provider Urology; Visit Provider Urology
DX: N13.30 Unspecified hydronephrosis (principal)
CPT/HCPCS: 78708; A9562; J1940

== ENCOUNTER 2024-11-15 09:00 | Outpatient (RCR) | payer OTHER, SELFPAY ==
--- NOTE | 2024-08-05 09:37 | HP.PTEVAL ---
Patient's Visit Information Visit Information Visit Information: FRANSICO HOWELL is a 49 year old F referred to Physical Therapy by Dr. Eileen Waterman MD with a diagnosis of HIGH TONE PELVIC FLOOR. Date of Evaluation: 08/05/24 Physical Therapist: Corina Finnegan PT, Cert MDT Visit Plan Frequency: 1x/Week Duration: 2-4 Months Plan: START WITH BLADDER RETRAINING INCLUDING DIAPHRAGMATIC BREATHING FOR PELVIC FLOOR RELAXATION. URINARY URGE AND FREQUENCY EDUCATION. PF INTERVENTIONS FOR STRENGTHENING, LENGTHENING/RELAXATION AND ENDURANCE TRAINING. HEALTHY BLADDER HABIT EDUCATION. TRAINING IN COORDINATION OF PELVIC FLOOR MUSCULATURE WITH HIP AND CORE (TRANSVERSE ABDOMINUS) MUSCULATURE. CORE STRENGTHENING. SANDOVAL LE ROM, STRETCHING AND STRENGTHENING. TRAINING IN ABDOMINAL CAVITY PRESSURE MGMT WITH ADL'S. HEALTHY BACK HABIT EDUCATION. POSTURE TRAINING. 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 Present symptoms: URINARY LEAKAGE AND FREQUENCY. EPISODES OF LEAKING OCCUR 3-4 TIMES A WK. WEARING POISE #3-5. Present since: 2005 BUT MARCH OF 2023 GOT WORSE. Pain Scale: N/A Is it getting better, worse or staying the same: STAYING THE SAME Commenced as a result of: MARCH 2023 - KIDNEY INFECTION Symptoms at onset: BACK PAIN Worse: COUGHING, SNEEZING, CHANGING POSITION, PHYSICAL ACTIVITY, FULL BADDER WITH THESE THINGS Better: NOTHING Previous history/Previous treatment: HYSTERECTOMY 2013, KIDNEY INFECTION MARCH 2023, INCREASED URINARY FREQUENCY A CHILD - EVER SINCE CHILDHOOD. DX'D WITH BLADDER SITTING LOW BUT NOT PROLAPSED IN THE PAST - NO SURGERY FOR THIS - STATES DR. WATERMAN TOLD HER SHE CURRENTLY DOES NOT HAVE BALDDER PROLAPSE. KEGEL'S . 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 Treatment this episode: PATIENT REPORTS SHE HAS BEEN PRESCRIBED MUSCLE RELAXER SUPPOSITORIES BUT HAS NOT USED THEM YET. SHE STATES SHE WAS VERY TENSE AND NOT ABLE TO RELAX DURING THE TEST GIVEN IN OFFICE DUE TO THE POSITION SHE WAS IN. How long can you delay the need to urinate: ZERO TO 15 MINUTES Prolapse (Falling out feeling): NO Frequency of Urination: 13+ TIMES A DAY AND 3 TIMES A NIGHT Fluid Intake: 9+ 8oz glasses per day. Ability to stop urine flow: UNABLE TO DEFLECT OR SLOW THE STREAM Ability to initiate urine stream: YES. NEVER HAVE DIFFICULTY. Dyspareunia: NO Bowel Incontinence: NO Unexplained weight loss: NO Imaging: PATIENT REPORTS BEING DX WITH OA L5 AND T12 PMH/Recent major surgery: RA Incontinence Seizures Asthma Diarrhea Fatigue Stomach ulcer Shoulder pain Hemorrhoids Shortness of breath History of lateral meniscus repair of left knee History of hysterectomy History of bunionectomy of both great toes Objective Objective: Sitting/Standing Posture: ANTERIOR PELVIC TILT IN STANDING. SLOUCHED IN SITTING. Other Observations: INDEP GAIT AND TRANSFERS. GOOD HISTORIAN. PLEASANT AND COOPERATIVE TO WORK WITH. Sensory deficit: SANDOVAL LE LIGHT TOUCH SENSATION GROSSLY INTACT AND SYMMETRICAL ROM deficit: SANDOVAL HIP ROTATOR, ADDUCTOR, HS AND CALF TIGHTNESS. Motor deficit: SANDOVAL HIPS 4/5, KNEES 5/5, ANKLE 5/5. WITH INTERNAL MANUAL VAGINAL TESTING OF PELVIC FLOOR STRENGTH = 3/5 X 3 X 4 SEC WITH ABILITY TO RELAX PELVIC FLOOR BETWEEN REPETITIONS WITH CUEING. Dural Signs: SANDOVAL LE'S NEGATIVE Lumbar mvmt loss: flex - NIL ext - MIN R SG - MIN L SG - MIN Core strength: FAIR. Palpation: NO C/O TENDERNESS AND NO HIGH TONE OR TRIGGER POINTS WITH INTERNAL MANUAL VAGINAL PALPATION OF PELVIC FLOOR. PATIENT WITH NORMAL TONE OF PELVIC FLOOR WITH PALPATION TODAY. FUNCTIONAL SCREEN: Incontinence Impact Questionnaire Score: 14 Urogenital Distress Inventory Score: 12 Goals Goal 1:: PATIENT WILL SUCCESSFULLY DELAY VOIDING LONG NEEDED WHEN URGENCY OCCURS TO SUCCESSFULLY MAKE IT TO THE BATHROOM. Goal Time Frame: 4-6 Weeks Goal 2:: DECREASE URINARY LEAKAGE EPISODES TO ONE OR LESS PER WEEK Goal Time Frame: 6-8 Weeks Goal 3:: NORMALIZE VOIDING FREQUENCEY TO EVERY 2.5 TO 3.5 HOURS. Goal Time Frame: 6-8 Weeks Goal 4:: INCREASE PELVIC FLOOR STRENGTH FOR BETTER ORGAN SUPPORT AND IMROVE URINARY INCONTINENCE Goal Time Frame: 8-12 Weeks Goal 5:: INCREASE ABDOMINAL/TRUNK AND LE STRENGTH FOR OPTIMAL ORGAN SUPPORT Goal Time Frame: 8-12 Weeks Goal 6:: PATIENT WILL BE INDEP WITH A HEP/HOME INSTRUCTIONS FOR CONTINUED IMPROVEMENT ONCE FORMAL PHYSICAL THERAPY CONCLUDES. Goal Time Frame: 8-12 Weeks Rehabilitation Potential Physical Therapy Diagnosis: URINARY FREQUENCY, URGENCY AND STRESS INCONTINENCE. PELVIC FLOOR, CORE AND HIP WEAKNESS. LE TIGHTNESS. Rehabilitation Potential: Good Anticipated Interventions Patient/Client Instruction: Educate patient on: Condition, Plan of Care and Risk Factors For the Purpose of:: To improve self management Therapeutic Exercise to Include: Strength training, Endurance training, Body mechanics, Postural training, Flexibilty training, Neuromotor development and Relaxation training For the Purpose of:: To improve muscle performance and motor function, To increase tolerance to activity/condition/position, To improve ability of physical actions for home/community/work/leisure and To increase flexibility/ROM Manual Therapy Techniques to Include: Soft tissue mobilization and Other Comment: TO PROMOTE RELAXATION AND FOR BIOFEEDBACK NEEDED. For the Purpose of:: To improve muscle performance and motor function Text: Thank you for the opportunity to evaluate your patient. For Medicare and Medicare HMO plans, please review the plan of care and approve it. It will need to be FAXED BACK to us at [phone] for Medicare purposes. For Medicare only, by signing this I certify the plan of care. Please let me know if there are questions or concerns regarding this plan of care. Physician Signature: Date:
--- NOTE | 2024-11-15 09:48 | HP.PTDCSUM ---
Discharge Summary D/C summary: It has been my pleasure to treat FRANSICO HOWELL referred by Dr. Eileen Mcclain MD, with the diagnosis of HIGH TONE PELVIC FLOOR for a total of 10 visit(s). Discharge Date: 11/15/24 Please see the following information for a summary of their discharge status. Subjective Subjective: PATIENT REPORTS HER BLADDER CONTROL/UI/URGE HAS IMPROVED DRASTICALLY. SHE REPORTS SHE HAS BEEN DOING HER HEP AND IT IS GOING GOOD. PATIENT DENIES UI MORE THAN ONCE A WEEK BUT IS STILL HAVING SOME REPORTING SOME MIXED UI SX'S. SHE REPORTS SUSPECTING SOME UI SX'S RELATED TO HER BLOOD SUGAR AND DIET. Overall Improvement % Improvement: 87 Objective Objective/Function: ASSESSMENT OF CURRENT SX'S AND HEP CHECK. ALL GOALS MET. PATIENT IS APPROPRIATE FOR AND AGREEABLE TO DISCHARGE. Goals Goal 1:: PATIENT WILL SUCCESSFULLY DELAY VOIDING LONG NEEDED WHEN URGENCY OCCURS TO SUCCESSFULLY MAKE IT TO THE BATHROOM. Goal Progress: Progressing Goal 2:: DECREASE URINARY LEAKAGE EPISODES TO ONE OR LESS PER WEEK Goal Progress: Goal Met Goal 3:: NORMALIZE VOIDING FREQUENCEY TO EVERY 2.5 TO 3.5 HOURS. Goal Progress: Goal Met Goal 4:: INCREASE PELVIC FLOOR STRENGTH FOR BETTER ORGAN SUPPORT AND IMROVE URINARY INCONTINENCE Goal Progress: Goal Met Goal 5:: INCREASE ABDOMINAL/TRUNK AND LE STRENGTH FOR OPTIMAL ORGAN SUPPORT Goal Progress: Goal Met Goal 6:: PATIENT WILL BE INDEP WITH A HEP/HOME INSTRUCTIONS FOR CONTINUED IMPROVEMENT ONCE FORMAL PHYSICAL THERAPY CONCLUDES. Goal Progress: Goal Met Plan Plan: D/C. D/C Information d/c sentence: If there are questions or concerns regarding this patient's physical therapy, please feel free to call me at [phone]. Thank you for the referral of this patient. Sincerely, Corina Finnegan, PT, Cert MDT Balance/Gait/Functional tests Improvement % Improvement: 87
== END 2024-11-15 19:00 | disposition home or self-care (01) ==
LOC: PT 09:00
PROVIDERS: PCP Family Medicine; Referring Provider Urology; Visit Provider Urology
DX: N81.89 Other female genital prolapse (principal)
CPT/HCPCS: 97162; 97530

== ENCOUNTER → 2025-01-19 | Outpatient (CLI) | payer OTHER, SELFPAY ==
[2025-01-19 11:15] LABS: Absolute Lymphocyte Count 2.21 X10^3/uL (0.83-4.51); Absolute Neutrophil Count 5.4 X10^3/uL (2.0-7.7); Basophil# 0.03 X10^3/uL; Basophil% 0.3 % (0-1); Eosinophil# 0.32 X10^3/uL; Eosinophils% 3.7 % (0-5); Hematocrit 40.5 % (37-47); Hemoglobin 13.3 g/dL (12.0-15.0); Lymphocyte # 2.21 X10^3/ul (0.83-4.51); Lymphocyte % 25.8 % (19-41); Mean Corp Hgb Conc 32.8 g/dL (32-36); Mean Corpuscular Hgb 29.4 pg (27.0-32.0); Mean Corpuscular Volume 89.4 fL (81-99); Mean Platelet Vol. 10.7 fl (6.2-12.0); Monocyte# 0.55 X10^3/uL; Monocyte% 6.4 % (0-10); NRBC Flagged by Analyzer 0 % (0-5); Neutrophil # 5.44 X10^3/uL (2.7-7.7); Neutrophil % 63.5 % (47-70); Platelet Count 282 K/mm3 (150-450); RBC Distribution Width CV 13.5 % (11.6-14.6); RBC Distribution Width SD 44.5 fl (35.1-43.9); Red Blood Count 4.53 M/mm3 (4.2-5.4); White Blood Count 8.6 K/mm3 (4.4-11.0)
[2025-01-19 11:35] LABS: Cholesterol 127 mg/dL (<=200); Hemoglobin A1c 8.3 % (<=5.6); High Density Lipoprotein 48 mg/dL; Low Density Lipoprotein Calc. 60 mg/dL; Triglycerides 94 mg/dL; Very Low Density Lipoprotein 19 mg/dL (5-40); cholesterol:hdl ratio screen 2.66
== END | disposition home or self-care (01) ==
LOC: MTLAB 09:01
PROVIDERS: PCP Family Medicine; Referring Provider Family Medicine; Visit Provider Family Medicine
DX: E11.9 Type 2 diabetes mellitus without complications (principal)
CPT/HCPCS: 36415; 80061; 83036; 85025